=== PATIENT | female | born 1985 | race African-American/Black ===

== ENCOUNTER 2018-02-06 18:43 | Emergency (ER) | payer SELFPAY ==
[2018-02-06] MEDS ORDERED: Morphine INJ* 2 MG/ML 1 ML SYRINGE (TWO MG - NEW SYRINGE VERSION) IV ONE (22:31)
[2018-02-06] MEDS ORDERED: Metoclopramide IV* 5 MG/ML 2 ML VIAL IV SLOW PU ONE (22:32)
[2018-02-06] MEDS ORDERED: NS 0.9% 1000 ML* 1,000 ML IV ONE (22:32)
--- NOTE | 2018-02-06 22:40 | ED ---
Abdominal Pain/Female - HPI Summary HPI Summary: This is eva Rowe documenting for attending Neftali Magaña MD. This patient is a 32 year old F presenting to [facility] with a chief complaint of right sided ABD pain that began 11 days ago. The patient rates the pain 10/10 in severity and states it radiates into her back. Symptoms aggravated by coughing and sneezing. Patient denies n/v/d, decreased appetite, and fever. Pt waited this long to be seen because she needed to find someone to watch her son. - History of Current Complaint Chief Complaint: EDAbdPain Stated Complaint: RT FLANK/BACK PAIN Time Seen by Provider: 02/06/18 22:17 Hx Obtained From: Patient Onset/Duration: Lasting Days - 11, Still Present Timing: Constant Severity Initially: Severe Severity Currently: Severe Pain Intensity: 10 Pain Scale Used: 0-10 Numeric Location: Discrete At: RUQ, Discrete At: RLQ Radiates: Yes Radiates to: Back Aggravating Factor(s): Other: - cough and sneezing Associated Signs and Symptoms: Negative: Nausea, Vomiting, Diarrhea Allergies/Adverse Reactions: Allergies Allergy/AdvReac Type Severity Reaction Status Date / Time No Known Allergies Allergy Verified 02/06/18 18:51 PMH/Surg Hx/FS Hx/Imm Hx Endocrine/Hematology History: Denies: Hx Blood Transfusions, Hx Bone Marrow Disease, Hx Diabetes Cardiovascular History: Denies: Hx Auto Implanted Cardiovert Defib, Hx Cardiomegaly, Hx Congestive Heart Failure, Hx Deep Vein Thrombosis Respiratory History: Denies: Hx Chronic Obstructive Pulmonary Disease (COPD), Hx Lung Cancer GI History: Denies: Hx Gastroesophageal Reflux Disease, Hx Gastrointestinal Bleed History: Denies: Hx Acute Renal Failure Infectious Disease History: No Infectious Disease History: Denies: Traveled Outside the [place] in Last 30 Days - Family History Known Family History: Positive: Hypertension, Diabetes - Social History Lives: With Family Alcohol Use: Occasionally Substance Use Type: Reports: None Hx Tobacco Use: No Smoking Status (MU): Never Smoked Tobacco Review of Systems Constitutional: Other - decreased appetite Negative: Fever Positive: Abdominal Pain. Negative: Vomiting, Diarrhea, Nausea All Other Systems Reviewed And Are Negative: Yes Physical Exam - Summary Physical Exam Summary: VITAL SIGNS: Reviewed. GENERAL: Patient is a well-developed and nourished femalewho is lying comfortable in the stretcher. Patient is not in any acute respiratory distress. HEAD AND FACE: No signs of trauma. No ecchymosis, hematomas or skull depressions. No sinus tenderness. EYES: PERRLA, EOMI x 2, No injected conjunctiva, no nystagmus. EARS: Hearing grossly intact. Ear canals and tympanic membranes are within normal limits. MOUTH: Oropharynx within normal limits. NECK: Supple, trachea is midline, no adenopathy, no JVD, no carotid bruit, no c- spine tenderness, neck with full ROM. CHEST: Symmetric, no tenderness at palpation LUNGS: Clear to auscultation bilaterally. No wheezing or crackles. CVS: Regular rate and rhythm, S1 and S2 present, no murmurs or gallops appreciated. ABDOMEN: Soft, RUQ is TTP. No signs of distention. No rebound no guarding, and no masses palpated. Bowel sounds are normal. EXTREMITIES: FROM in all major joints, no edema, no cyanosis or clubbing. NEURO: Alert and oriented x 3. No acute neurological deficits. Speech is normal and follows commands. SKIN: Dry and warm Triage Information Reviewed: Yes Vital Signs On Initial Exam: Initial Vitals Temp Pulse Resp BP Pulse Ox 98.5 F 88 16 123/66 100 02/06/18 18:51 02/06/18 18:51 02/06/18 18:51 02/06/18 18:51 02/06/18 18:51 Vital Signs Reviewed: Yes Diagnostics - Vital Signs Vital Signs Temp Pulse Resp BP Pulse Ox 02/06/18 20:51 98.0 F 88 18 115/30 02/06/18 18:51 98.5 F 88 16 123/66 100 - Laboratory Result Diagrams: 02/06/18 22:59 02/06/18 22:58 Lab Statement: Any lab studies that have been ordered have been reviewed, and results considered in the medical decision making process. - CT CT ABD/Pelvis CT Interpretation Completed By: Radiologist - , No CT findings to correlate with patient's symptomatology. ED physician has reviewed this radiology report. - Ultrasound No standard instances Ultrasound Interpretation Completed By: Radiologist - US gallbladder reveals, per radiologist, no sonographic findings to correlate with the patients symptomatology ED physician has reviewed this radiology report. Re-Evaluation - Re-Evaluation Second Eval Re-Evaluation Time: 00:30 Change: Improved Comment: Pt is feeling better and is sleeping in the bed. Abdominal Pain Fem Course/Dx - Course Course Of Treatment: This patient is a 32 year old F presenting to [facility] with a chief complaint of right sided ABD pain that began 11 days ago. The patient rates the pain 10/10 in severity and states it radiates into her back. Symptoms aggravated by coughing and sneezing. Patient denies n/v/d, decreased appetite, and fever. Pt waited this long to be seen because she needed to find someone to watch her son. US gallbladder reveals, per radiologist, no sonographic findings to correlate with the patients symptomatology. CT ABD/Pelvis reveals , per radiology, No CT findings to correlate with patient's symptomatology. Test results with no significant abnormalities. UA was positive for UTI. In the ED course the patient was given reglan, morphine, bactrim, and IV fluids. She is feeling better after these medications. Patient will be discharged with prescription for bactrim and follow up from physician referral center. The patient is agreeable with this plan. - Diagnoses Provider Diagnoses: UTI (urinary tract infection) Discharge - Sign-Out/Discharge Documenting (check all that apply): Patient Departure - Discharge Plan Condition: Stable Disposition: HOME Prescriptions: Ibuprofen TAB* [Motrin TAB* 800 MG] 800 mg PO Q6H PRN #30 tab PRN Reason: Pain Sulfamethox/Trimethoprim DS* [Bactrim DS 800/160 TAB*] 1 tab PO BID #14 tab Patient Education Materials: Urinary Tract Infection in Women (DC) Referrals: [facility] PHYS[facility]IAN REFERRAL [Outside] - 2 Days Additional Instructions: RETURN TO THE EMERGENCY DEPARTMENT FOR CHANGING OR WORSENING SYMPTOMS Attestation Statement Scribe Attestation: This is eva Rowe documenting for attending Neftali Magaña MD User Type: Provider with Scribe Provider Attestation: The documentation recorded by the karoibcosta accurately reflects the service I personally performed and the decisions made by me.
[2018-02-06 23:18] LABS: Urine Appearance Cloudy; Urine Blood Negative (Negative); Urine Ketones Negative (Negative); Urine Protein Negative (Negative); Urine Red Blood Cell 3+(>10/hpf) (Absent); Urine Specific Gravity 1.029 (1.010-1.030); Urine Urobilinogen Negative (Negative); Urine White Blood Cell 3+(>20/hpf) (Absent)
[2018-02-06 23:21] LABS: ABS Basophils 0.1 10^3/ul (0-0.2); ABS Eosinophils 0.3 10^3/ul (0-0.6); ABS Lymphocytes 3.1 10^3/ul (1.0-4.8); ABS Monocytes 0.8 10^3/ul (0-0.8); ABS Neutrophils 3.3 10^3/ul (1.5-7.7); ABS Nucleated RBC 0 10^3/ul; Eosinophil % 4.2 % (0-6); Hematocrit 34 % (35-47); Hemoglobin 11.3 g/dl (12.0-16.0); Lymphocyte % 40.9 % (25-47); Mean Corpuscular HGB Conc 33 g/dl (31-36); Mean Corpuscular Hemoglobin 29 pg (27-31); Mean Corpuscular Volume 87 fL (80-97); Mean Platelet Volume 9.2 um3 (7.4-10.4); Nucleated Red Blood Cells % 0.2; Platelet Count 218 10^3/ul (150-450); Red Blood Count 3.94 10^6/ul (4.00-5.40); Red Cell Distribution Width 14 % (10.5-15); White Blood Count 7.6 10^3/ul (3.5-10.8)
[2018-02-06 23:21] LABS: INR 0.99 (0.77-1.02)
[2018-02-06 23:23] LABS: Urine Color Yellow
--- NOTE | 2018-02-06 23:27 | RAD ---
EXAM: US Abdomen Limited, Right Upper Quadrant CLINICAL HISTORY: 32 years old, female; Pain; Abdominal pain; Flank; Right upper quadrant (ruq); Additional info: Abd pain TECHNIQUE: Real-time ultrasound of the right upper quadrant with image documentation. COMPARISON: No relevant prior studies available. FINDINGS: Liver: Normal liver echogenicity and size with no focal lesions. Normal hepatopetal portal vein flow. No intrahepatic bile duct dilation. Gallbladder: Collapsed gallbladder which degrades evaluation. No gallstones, wall thickening, pericholecystic fluid, or sonographic Vegas's sign. Common bile duct: CBD measures 0.2 cm. Pancreas: Pancreatic head through proximal tail are well visualized showing no focal lesions or main ductal dilation. Distal tail is shadowed by overlying bowel gas. Right kidney: Right kidney measures 10.5 x 4.9 x 3.4 cm (92 cc). No solid cortical lesions, calculi, or pelvocaliectasis. Aorta: Non-atherosclerotic normal caliber aorta. Inferior vena cava: Patent IVC. IMPRESSION: No sonographic findings to correlate with patient's symptomatology. I have reviewed the above report as well as the images associated and agree with the findings.
[2018-02-06 23:31] LABS: EGFR Non-African American 65.9 (>60)
--- NOTE | 2018-02-07 00:25 | RAD ---
EXAM: CT Abdomen and Pelvis Without Intravenous Contrast CLINICAL HISTORY: 32 years old, female; Pain; Abdominal pain; Generalized; Additional info: Abd pain TECHNIQUE: Axial computed tomography images of the abdomen and pelvis without intravenous contrast. Coronal and sagittal reformatted images were created and reviewed. COMPARISON: GB US GALL BLADDER 2018-02-06 22:40 FINDINGS: Lung bases: Normal. No mass. No consolidation. ABDOMEN: Liver: Normal. Normal size. No masses. Gallbladder and bile ducts: Normal. No radiopaque calculi. No ductal dilation. Pancreas: Normal. No ductal dilation. Spleen: Normal. No splenomegaly. Adrenals: Normal. No mass. Kidneys and ureters: No renal solid cortical lesions, calculi, or pelvocaliectasis. Stomach and bowel: Incompletely distended grossly normal stomach. Normal caliber small bowel. No colonic masses or segmental wall thickening. PELVIS: Appendix: Normal caliber appendix without wall thickening or adjacent inflammation. Bladder: The bladder is decompressed but otherwise normal. No stones. Reproductive: Uterus and ovaries are normal. ABDOMEN and PELVIS: Intraperitoneal space: Normal. No pneumoperitoneum. No ascities. Bones/joints: No fractures. No suspicious bone lesions. Soft tissues: Normal. No hernias. Vasculature: Normal. No abdominal aortic aneurysm. Lymph nodes: Normal. No enlarged lymph nodes. IMPRESSION: No CT findings to correlate with patient's symptomatology. The study is limited as there is no oral or IV contrast present.
[2018-02-07] MEDS ORDERED: Sulfamethox/Trimethoprim DS 800/160* TAB PO ONE (00:36)
[2018-02-07 01:08] VITALS: BP 98/53
== END 2018-02-07 01:13 | disposition home or self-care (01) ==
LOC: ED 18:43
DX: N39.0 Urinary tract infection, site not specified (principal); R10.84 Generalized abdominal pain
CPT/HCPCS: 36415; 74176; 76705; 80053; 81003; 81015; 82150; 83690; 84702; 85025; 85610; 85730; 86140; 87086; 96374; 96375; 99283; A9270-GY; J2270; J2765

== ENCOUNTER 2018-05-02 21:54 | Inpatient (IN) | payer MEDICAID ==
[~2018-05-02 21:54] MED LIST: Haloperidol INJ IV/IM* 5 MG/ML AMP ONE; LORazepam INJ* 2 MG/ML 1 ML VIAL ONE
--- NOTE | 2018-05-02 22:28 | ED ---
Psychiatric Complaint - HPI Summary HPI Summary: This pt is a 32 y/o female presenting to [facility] via police crime scene technician on a 9.43. admitting officer reports the pt was sent by the administrative judge. Pt states she was in court because she had violated an order of protection by her significant other. Per nurse's note, she is "having issues with her over the custody on her child and had protective services involved." She reports SI thoughts. Pt notes she has not taken her medications "in a while." They include Depakote, Seroquel, PMHx of schizoaffective disorder. - History Of Current Complaint Chief Complaint: EDMentalHealth Time Seen by Provider: 05/02/18 22:16 Hx Obtained From: Patient Onset/Duration: Lasting Days, Still Present Timing: Days Severity Currently: Moderate Character: Depressed Aggravating Factor(s): Recent Stress - violating court order Alleviating Factor(s): Nothing Has Suicidal: Reports: Thoughts Recent Stressor(s): violating court order - Allergies/Home Medications Allergies/Adverse Reactions: Allergies Allergy/AdvReac Type Severity Reaction Status Date / Time No Known Allergies Allergy Verified 05/02/18 21:59 Home Medications: Home Medications NK [No Home Medications Reported] 05/02/18 [History Confirmed 05/02/18] PMH/Surg Hx/FS Hx/Imm Hx Endocrine/Hematology History: Denies: Hx Blood Transfusions, Hx Bone Marrow Disease, Hx Diabetes Cardiovascular History: Denies: Hx Auto Implanted Cardiovert Defib, Hx Cardiomegaly, Hx Congestive Heart Failure, Hx Deep Vein Thrombosis Respiratory History: Denies: Hx Chronic Obstructive Pulmonary Disease (COPD), Hx Lung Cancer GI History: Denies: Hx Gastroesophageal Reflux Disease, Hx Gastrointestinal Bleed History: Denies: Hx Acute Renal Failure Psychiatric History: Reports: Other Psychiatric Issues/Disorders - Schizoaffective disorder Infectious Disease History: No Infectious Disease History: Denies: Traveled Outside the US in Last 30 Days - Family History Known Family History: Positive: Hypertension, Diabetes - Social History Alcohol Use: Occasionally Substance Use Type: Reports: None Hx Tobacco Use: No Smoking Status (MU): Never Smoked Tobacco Review of Systems Negative: Fever, Chills Cardiovascular: Negative Respiratory: Negative Gastrointestinal: Negative Psychological: Other - POS: SI thoughts Positive: Depressed All Other Systems Reviewed And Are Negative: Yes Physical Exam - Summary Physical Exam Summary: VITAL SIGNS: Reviewed. GENERAL: Patient is a well-developed and nourished female who is lying comfortable in the stretcher. Patient is not in any acute respiratory distress. HEAD AND FACE: No signs of trauma. No ecchymosis, hematomas or skull depressions. No sinus tenderness. EYES: PERRLA, EOMI x 2, No injected conjunctiva, no nystagmus. EARS: Hearing grossly intact. Ear canals and tympanic membranes are within normal limits. MOUTH: Oropharynx within normal limits. NECK: Supple, trachea is midline, no adenopathy, no JVD, no carotid bruit, no c- spine tenderness, neck with full ROM. CHEST: Symmetric, no tenderness at palpation LUNGS: Clear to auscultation bilaterally. No wheezing or crackles. CVS: Regular rate and rhythm, S1 and S2 present, no murmurs or gallops appreciated. ABDOMEN: Soft, non-tender. No signs of distention. No rebound no guarding, and no masses palpated. Bowel sounds are normal. EXTREMITIES: FROM in all major joints, no edema, no cyanosis or clubbing. NEURO: Alert and oriented x 3. No acute neurological deficits. Speech is normal and follows commands. SKIN: Dry and warm Psych: tearful and suicidal. Triage Information Reviewed: Yes Vital Signs On Initial Exam: Initial Vitals Temp Pulse Resp BP Pulse Ox 97.7 F 72 16 134/85 99 05/02/18 21:56 05/02/18 21:56 05/02/18 21:56 05/02/18 21:56 05/02/18 21:56 Vital Signs Reviewed: Yes Diagnostics - Vital Signs Vital Signs Temp Pulse Resp BP Pulse Ox 05/02/18 21:56 97.7 F 72 16 134/85 99 - Laboratory Result Diagrams: 05/02/18 22:29 05/02/18 22:29 Lab Statement: Any lab studies that have been ordered have been reviewed, and results considered in the medical decision making process. Re-Evaluation - Re-Evaluation First Eval Re-Evaluation Time: 23:46 Comment: Pt is medically cleared. Course/Dx - Course Assessment/Plan: Pt is a 32 y/o female who presents to the ED via police crime scene technician on a 9.43. admitting officer reports the pt was sent by the administrative judge. Pt states she was in court because she had violated an order of protection by her significant other. Per nurse's note, she is "having issues with her over the custody on her child and had protective services involved." She reports SI thoughts. Pt was medically cleared at 23:46. Pt had a mental health evaluation and her case was reviewed by Dr. Ambrocio, psychiatrist. Dr. Ambrocio will involuntarily admit the pt to [facility] psychiatric facility. - Differential Dx/Clinical Impression Provider Diagnosis: Depression Discharge - Sign-Out/Discharge Documenting (check all that apply): Patient Departure - Admit to [facility] - Discharge Plan Condition: Stable Disposition: PSYCHIATRIC FACILITY[facility] Referrals: No Primary Care Phys,[facility]OP[facility] [Primary Care Provider] - - Attestation Statements Document Initiated by Scribe: Yes Documenting Scribe: Miriam Paula Provider For Whom Scribe is Documenting (Include Credential): Neftali Magaña MD Scribe Attestation: Miriam Brown, scribed for Neftali Magaña MD on 05/03/18 at 0059.
[2018-05-02 22:43] LABS: ABS Basophils 0.1 10^3/ul (0-0.2); ABS Eosinophils 0.2 10^3/ul (0-0.6); ABS Lymphocytes 3.3 10^3/ul (1.0-4.8); ABS Monocytes 0.6 10^3/ul (0-0.8); ABS Neutrophils 3.2 10^3/ul (1.5-7.7); ABS Nucleated RBC 0 10^3/ul; Eosinophil % 2.7 % (0-6); Hematocrit 37 % (35-47); Hemoglobin 12.1 g/dl (12.0-16.0); Mean Corpuscular HGB Conc 33 g/dl (31-36); Mean Corpuscular Hemoglobin 29 pg (27-31); Mean Corpuscular Volume 88 fL (80-97); Mean Platelet Volume 9.7 fL (7.4-10.4); Nucleated Red Blood Cells % 0.1; Platelet Count 205 10^3/ul (150-450); Red Blood Count 4.25 10^6/ul (4.00-5.40); Red Cell Distribution Width 14 % (10.5-15); White Blood Count 7.2 10^3/ul (3.5-10.8)
[2018-05-02 23:01] LABS: EGFR Non-African American 85.5 (>60)
[2018-05-02 23:21] LABS: Urine Appearance Cloudy; Urine Blood Negative (Negative); Urine Color Yellow; Urine Ketones Negative (Negative); Urine Protein Negative (Negative); Urine Specific Gravity 1.017 (1.010-1.030); Urine Urobilinogen Negative (Negative)
[2018-05-02] MEDS ORDERED: ALPRAZolam TAB* 0.5 MG ONE (23:40)
[2018-05-02] MEDS ORDERED: ALPRAZolam TAB* 0.5 MG PO ONE (23:42)
[2018-05-03] MEDS ORDERED: Mouth Piece, Nicotine* 1 EACH CARTRIDGE ONE (00:37)
[2018-05-03] MEDS ORDERED: Nicotine Inhaler* 10 MG AMP ONE (00:38)
[2018-05-03] MEDS: Nicotine Inhaler* 10 MG AMP INH PRN ×5 (00:40→19:18)
[2018-05-03] MEDS ORDERED: Al Hydrox/Mg Hydrox/Simet LIQ* 30 ML UDC PO PRN (07:14)
[2018-05-03] MEDS: Acetaminophen TAB* 325 MG PO PRN ×2 (09:37→16:30)
[2018-05-03] MEDS: Mouth Piece, Nicotine* 1 EACH CARTRIDGE INH SCH ×2 (09:38→16:29)
[2018-05-03] MEDS: Vitamin THERAPEUTIC TAB PO SCH (09:38)
[2018-05-03] MEDS: Nicotine GUM* 2 MG PO PRN ×3 (10:00→18:55)
[2018-05-03] MEDS: Nicotine PATCH 21 MG/24 HR* PATCH TRANSDERM SCH (10:07)
--- NOTE | 2018-05-03 13:29 | HP ---
H&P (Free Text) History and Physical: JUSTIFICATION FOR ADMISSION: Patient presented to emergency room after making suicidal and homicidal statements, with worsening irritability around custody issue with her son's father. She requires inpatient psychiatric admission in order to provide treatment and stabilization as she is a danger to himself and unpredictable with her behavior towards others. CHIEF COMPLAINT: "All I want is my child HISTORY OF THE PRESENT ILLNESS: Patient is a 32 y/o female, single, living with her friend, currently employed, with history of Bipolar disorder or ?schizoaffective Disorder. Patient has been non compliant with her medications since spring of this year after moving from [place] to [place]. Patient was admitted to inpatient unit for worsening of emotional regulation with behavioral dysregulation, frustrated with custody issues of her child, recent order of protection by son's father. Patient was overwhelmed with court proceeding as she was at the court for violating order of protection. Patient reports that she might lose her child and that has been very stressful recently. Patient reportedly was taking Depakote ER 1000 mg at bedtime and Seroquel 100 mg at Bedtime. Patient has been non compliant with her medication since move. Patient reportedly has been struggling with conflicts with son's father and has been consuming marijuana on a daily basis. Patient reports manic symptoms irritability, decrease sleep, increase energy, impulsive with easy distraction and hyperverbal and loud speech. Patient reports no psychotic symptoms of paranoia or delusion. Patient denied any suicidal or homicidal ideation on the unit. Patient continued to exhibit behavior that is in control and willing to participate in treatment. PAST PSYCHIATRIC HISTORY: Patient has history of atleast one inpatient psychiatric hospitalization in [place]. Patient has history of outpatient psychiatric treatment for her Bipolar Disorder in [place]. Patients medications in the past were Depakote, Seroquel and Zyprexa that she responded well to. Patient has history of making suicidal statement but reports no attempt or plan. Patient has history of homicidal threats but no intent or attempt. Patient has history of aggressive and agitated behavior when decompensates. No access to firearm reported. SUBSTANCE ABUSE HISTORY: Patient uses marjuana on a daily basis. Urine toxicology was positive for marijuana. Last use was on the day that she presented to [facility]. PAST MEDICAL HISTORY: No active medical problems ALLERGIES: NKA FAMILY PSYCHIATRIC HISTORY: Patient has reported family history of psychiatric illness or substance abuse in family. Patient reported that her cousin of suicide in the family. FAMILY/PSYCHOSOCIAL HISTORY: Patient currently lives with her friend at a rented house. Patient is currently employed. Patient is not . Patient has a 9 y/o child that she is very attached to and worry a lot about him. Patient was raised by her parents and grand parent in [place]. Patient still reports a good relationship with her parents. Patient reports that recently she lost her grandmother who was struggling with pancreatic cancer and in her apartment this year. Patient also reports that her cousin of suicide few years ago. Patient support system includes her family and friends. REVIEW OF SYSTEMS: Patients review of symptoms was negative for any physical complaint. Patient vitals were stable. Patients ED physical exam was reviewed which is grossly normal with no active medical problem. Physical Exam Summary: VITAL SIGNS: Reviewed. GENERAL: Patient is a well-developed and nourished female who is lying comfortable in the stretcher. Patient is not in any acute respiratory distress. HEAD AND FACE: No signs of trauma. No ecchymosis, hematomas or skull depressions. No sinus tenderness. EYES: PERRLA, EOMI x 2, No injected conjunctiva, no nystagmus. EARS: Hearing grossly intact. Ear canals and tympanic membranes are within normal limits. MOUTH: Oropharynx within normal limits. NECK: Supple, trachea is midline, no adenopathy, no JVD, no carotid bruit, no c- spine tenderness, neck with full ROM. CHEST: Symmetric, no tenderness at palpation LUNGS: Clear to auscultation bilaterally. No wheezing or crackles. CVS: Regular rate and rhythm, S1 and S2 present, no murmurs or gallops appreciated. ABDOMEN: Soft, non-tender. No signs of distention. No rebound no guarding, and no masses palpated. Bowel sounds are normal. EXTREMITIES: FROM in all major joints, no edema, no cyanosis or clubbing. NEURO: Alert and oriented x 3. No acute neurological deficits. Speech is normal and follows commands. SKIN: Dry and warm MENTAL STATUS EXAMINATION: Appearance: Patient is 32 y/o female, appear stated, age, sitting during the interview, appear tired, but fair grooming and hygiene. Behavior: in control Gait: normal Abnormal motor activity: normal Speech: normal tone and volume, normal rate and rhythm Mood: dysphoric Affect: depressed, constricted Thought process: coherent to circumstantial Thought Content: Suicidal/Homicidal ideation: passive SI due to custody issues Delusions: none Obsessions: none Phobia: none Perceptual disturbance: none Attention: fair Orientation: grossly intact Concentration: limited Memory: fair Insight: poor as per recent evidence Judgment: fair at this time and is showing compliance with treatment Impulse control: poor as per recent evidence IMPRESSION: Patient with history of Bipolar Disorder and Cannabis Abuse. Patient currently admitted due to making suicidal and homicidal statement, worsening of her mood swing and behavioral deregulation in in the context of custody issue of her 9 y/o son and court appearance due to violation of order of protection. Patient has also struggled with compliance since her move from [place] and has no outpatient services since then. Patient is a danger to self and others if discharged hence will be stabilized on inpatient unit with medication adjustments and therapy. DIAGNOSIS: Bipolar Disorder unspecified, Cannabis Abuse PLAN: Admit to U on Q 15 min observation. Patient is full code. Patient is on involuntary admission status Integrate patient into the milieu individual and group psychotherapy MMPI and psychological consult with Dr. Lamar. Social work consult for therapy and discharge planning Will hold family meeting with parents to increase Data base. Medications were verified from her [facility] pharmacy in [place], [place]. Patient gave informed consent to start the following medications: Patient was restarted on Depakote ER 1000 mg Po QHS for mood stability. Patient was also started on Seroquel 100 mg At Bedtime to help with insomnia and augment mood stabilization. Will continue to monitor and f/u for improvement and side effects. Cris Parra MD Attending Psychiatrist
[2018-05-03] MEDS: Divalproex ER TAB(*) 500 MG PO SCH (19:18)
[2018-05-03] MEDS: QUEtiapine TAB* 100 MG PO SCH (19:20)
[2018-05-04] MEDS: Vitamin THERAPEUTIC TAB PO SCH (08:27)
[2018-05-04] MEDS: Nicotine PATCH 21 MG/24 HR* PATCH TRANSDERM SCH (08:27)
[2018-05-04] MEDS: Nicotine GUM* 2 MG PO PRN ×4 (08:28→21:16)
[2018-05-04] MEDS: Nicotine Inhaler* 10 MG AMP INH PRN ×2 (08:29→21:16)
[2018-05-04] MEDS ORDERED: hydrOXYzine HCL TAB* 25 MG ONE (08:32)
[2018-05-04] MEDS: hydrOXYzine HCL TAB* 25 MG PO PRN ×2 (14:58→20:56)
[2018-05-04] MEDS: Divalproex ER TAB(*) 500 MG PO SCH (19:52)
[2018-05-04] MEDS: QUEtiapine TAB* 100 MG PO SCH (19:52)
[2018-05-05] MEDS: Nicotine GUM* 2 MG PO PRN ×5 (04:15→22:17)
[2018-05-05] MEDS: hydrOXYzine HCL TAB* 25 MG PO PRN ×4 (04:15→23:04)
[2018-05-05] MEDS: Nicotine Inhaler* 10 MG AMP INH PRN ×5 (05:20→17:41)
[2018-05-05] MEDS: Acetaminophen TAB* 325 MG PO PRN ×2 (07:26→11:48)
[2018-05-05] MEDS: Vitamin THERAPEUTIC TAB PO SCH (07:27)
[2018-05-05] MEDS: Nicotine PATCH 21 MG/24 HR* PATCH TRANSDERM SCH (11:00)
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
[2018-05-05] MEDS: QUEtiapine TAB* 100 MG PO SCH (20:50)
[2018-05-05] MEDS: Divalproex ER TAB(*) 500 MG PO SCH (20:50)
[2018-05-06] MEDS: Nicotine Inhaler* 10 MG AMP INH PRN ×2 (05:15→08:24)
[2018-05-06] MEDS: Nicotine PATCH 21 MG/24 HR* PATCH TRANSDERM SCH (08:00)
[2018-05-06] MEDS: hydrOXYzine HCL TAB* 25 MG PO PRN (08:01)
[2018-05-06] MEDS: Acetaminophen TAB* 325 MG PO PRN (08:01)
[2018-05-06] MEDS: Vitamin THERAPEUTIC TAB PO SCH (08:01)
[2018-05-06] MEDS: Nicotine GUM* 2 MG PO PRN (08:24)
[2018-05-06 10:24] VITALS: BP 114/83
--- NOTE | 2018-05-06 13:44 | DS ---
Subjective - Subjective Service Types: [id number] [facility] Day [facility] complex over 30 min Discharge Date: 05/06/18 Subjective: JUSTIFICATION FOR ADMISSION: Patient presented to emergency room after making suicidal and homicidal statements, with worsening irritability around custody issue with her son's father. She requires inpatient psychiatric admission in order to provide treatment and stabilization as she is a danger to himself and unpredictable with her behavior towards others. CHIEF COMPLAINT: "All I want is my child HISTORY OF THE PRESENT ILLNESS: Patient is a 32 y/o female, single, living with her friend, currently employed, with history of Bipolar disorder or ?schizoaffective Disorder. Patient has been non compliant with her medications since spring of this year after moving from [place] to [place]. Patient was admitted to inpatient unit for worsening of emotional regulation with behavioral dysregulation, frustrated with custody issues of her child, recent order of protection by son's father. Patient was overwhelmed with court proceeding as she was at the court for violating order of protection. Patient reports that she might lose her child and that has been very stressful recently. Patient reportedly was taking Depakote ER 1000 mg at bedtime and Seroquel 100 mg at Bedtime. Patient has been non compliant with her medication since move. Patient reportedly has been struggling with conflicts with son's father and has been consuming marijuana on a daily basis. Patient reports manic symptoms irritability, decrease sleep, increase energy, impulsive with easy distraction and hyperverbal and loud speech. Patient reports no psychotic symptoms of paranoia or delusion. Patient denied any suicidal or homicidal ideation on the unit. Patient continued to exhibit behavior that is in control and willing to participate in treatment. PAST PSYCHIATRIC HISTORY: Patient has history of atleast one inpatient psychiatric hospitalization in [place]. Patient has history of outpatient psychiatric treatment for her Bipolar Disorder in [place]. Patients medications in the past were Depakote, Seroquel and Zyprexa that she responded well to. Patient has history of making suicidal statement but reports no attempt or plan. Patient has history of homicidal threats but no intent or attempt. Patient has history of aggressive and agitated behavior when decompensates. No access to firearm reported. SUBSTANCE ABUSE HISTORY: Patient uses marjuana on a daily basis. Urine toxicology was positive for marijuana. Last use was on the day that she presented to [facility]. PAST MEDICAL HISTORY: No active medical problems ALLERGIES: NKA FAMILY PSYCHIATRIC HISTORY: Patient has reported family history of psychiatric illness or substance abuse in family. Patient reported that her cousin of suicide in the family. FAMILY/PSYCHOSOCIAL HISTORY: Patient currently lives with her friend at a rented house. Patient is currently employed. Patient is not . Patient has a 9 y/o child that she is very attached to and worry a lot about him. Patient was raised by her parents and grand parent in [place]. Patient still reports a good relationship with her parents. Patient reports that recently she lost her grandmother who was struggling with pancreatic cancer and in her apartment this year. Patient also reports that her cousin of suicide few years ago. Patient support system includes her family and friends. REVIEW OF SYSTEMS: Patients review of symptoms was negative for any physical complaint. Patient vitals were stable. Patients ED physical exam was reviewed which is grossly normal with no active medical problem. Physical Exam Summary: VITAL SIGNS: Reviewed. GENERAL: Patient is a well-developed and nourished female who is lying comfortable in the stretcher. Patient is not in any acute respiratory distress. HEAD AND FACE: No signs of trauma. No ecchymosis, hematomas or skull depressions. No sinus tenderness. EYES: PERRLA, EOMI x 2, No injected conjunctiva, no nystagmus. EARS: Hearing grossly intact. Ear canals and tympanic membranes are within normal limits. MOUTH: Oropharynx within normal limits. NECK: Supple, trachea is midline, no adenopathy, no JVD, no carotid bruit, no c- spine tenderness, neck with full ROM. CHEST: Symmetric, no tenderness at palpation LUNGS: Clear to auscultation bilaterally. No wheezing or crackles. CVS: Regular rate and rhythm, S1 and S2 present, no murmurs or gallops appreciated. ABDOMEN: Soft, non-tender. No signs of distention. No rebound no guarding, and no masses palpated. Bowel sounds are normal. EXTREMITIES: FROM in all major joints, no edema, no cyanosis or clubbing. NEURO: Alert and oriented x 3. No acute neurological deficits. Speech is normal and follows commands. SKIN: Dry and warm MENTAL STATUS EXAMINATION On ADMISSION: Appearance: Patient is 32 y/o female, appear stated, age, sitting during the interview, appear tired, but fair grooming and hygiene. Behavior: in control Gait: normal Abnormal motor activity: normal Speech: normal tone and volume, normal rate and rhythm Mood: dysphoric Affect: depressed, constricted Thought process: coherent to circumstantial Thought Content: Suicidal/Homicidal ideation: passive SI due to custody issues Delusions: none Obsessions: none Phobia: none Perceptual disturbance: none Attention: fair Orientation: grossly intact Concentration: limited Memory: fair Insight: poor as per recent evidence Judgment: fair at this time and is showing compliance with treatment Impulse control: poor as per recent evidence DIAGNOSIS ON ADMISSION: Bipolar Disorder unspecified, Cannabis Abuse DIAGNOSIS ON DISCHARGE: Bipolar Disorder unspecified, Cannabis Abuse Objective - Appearance Appearance: Healthy Appearing Dysmorphic Features: No Hygiene: Normal Grooming: Fairly Well Kept - Behavior Psychomotor Activities: Normal Exhibits Abnormal Movement: No - Attitude and Relatedness Attitude and Relatedness: Cooperative Eye Contact: Fair - Speech Quality: Unpressured Latencies: Normal Quantity: Appropriate - Mood Patient's Decription of Mood: "Fine" - Affect Observed Affect: Fair Affect Consistent with: Euthymia - Thought Process Patient's Thought Process: Coherent Thought Content: No Passive Wish, No Suicidal Planning, No Homicidal Ideation, No Paranoid Ideation - Sensorium Experiencing Hallucinations: No, Sensorium is Clear Type of Hallucinations: Visual: No, Auditory: No, Command: No - Level of Consciousness Level of Consciousness: Alert Orientation: Yes Intact, Yes Orientated to Time, Yes Orientated to Place, Yes Orientated to Person - Impulse Control Impulse Control: Intact - Insight and Judgement Insight and Judgement: Fair - Group Participation Particating in Group Activities: Yes - Medication Management Medication Management Adherence: Yes Treatment Course & Assessment Clinical Course & Impression: Patient is 32 y/o female with history of Bipolar Disorder and Cannabis Abuse. Patient currently admitted due to making suicidal and homicidal statement, worsening of her mood swing and behavioral deregulation in in the context of custody issue of her 9 y/o son and court appearance due to violation of order of protection. Patient has also struggled with compliance since her move from [place] and has no outpatient services since then. Patient was a danger to self and others if discharged hence will be stabilized on inpatient unit with medication adjustments and therapy. Patient was admitted to [facility] on Q 15 min observation. Patient is full code. Patient was on involuntary admission status. Integrated patient into the milieu individual and group psychotherapy. Social work consulted for therapy and discharge planning. Medications were verified from her [facility] pharmacy in [place], [place]. Patient gave informed consent to start Depakote ER 1000 mg PO QHS for mood stability. Patient was also started on Seroquel 100 mg At Bedtime to help with insomnia and augment mood stabilization. Patient was monitored and followed up for improvement and side effects. Patient was compliant with treatment, was sleeping and eating good. Patient tolerated medication well with no side effects reported. Patient responded quickly and showed good improvement. Patient mood and behavior was stable. Patient was safe on all checks. Patient denied suicidal or homicidal ideation. Patient was not psychotic or manic on the day of discharge. patient was counseled about substance abuse and was willing to follow up outpatient for that as well. Patient was requesting for discharge and did not meet criteria fro involuntary hospitalization. As patient was doing good, patietn was discharged with plan to follow up with outpatient treatment after discussing with team. Merits Inpatient Hospitalization: No Clear for Discharge: Adequate Clinical Respons, Acceptable Safety Profile, Low Utility of Inpt Care Inpatient DSM-V Dx: F39 Discharge Planning - Discharge Planning Discharge Plan: Outpatient Follow Up Recommendations for Continuing Care: Medication Management, Psychotherapy, Substance Abuse Counseling Medications: Discharge Medications: Depakote ER PO 1000 mg HS Seroquel 100 mg PO QHS Hydroxyzine 50 mg PO BID PRN for anxiety provided 2 weeks of medications Discharge Planning: Prescriptions provided for discharge [x] Yes [] No Follow up care details as per social work arrangements. Patient response to discharge plan: [x] eager for discharge [] agreeable with discharge plan [] ambivalent about discharge [] disagrees with discharge today
== END 2018-05-06 12:52 | disposition home or self-care (01) | DRG 753 ==
LOC: ED 21:54 → BSU 05-03 00:50
PROVIDERS: ADMIT Psychiatry & Neurology Psychiatry; ATTEND Psychiatry & Neurology Psychiatry
DX: F39 Unspecified mood [affective] disorder (principal); R45.851 Suicidal ideations; F31.9 Bipolar disorder, unspecified; F12.10 Cannabis abuse, uncomplicated; R45.850 Homicidal ideations; Z91.14 Patient's other noncompliance with medication regimen; Z81.8 Family history of other mental and behavioral disorders
CPT/HCPCS: 36415; 80053; 80307; 80320; 80329; 81003; 84443; 84702; 85025; 99222; 99231; 99238; 99284; A9270-GY; G0480; J1630; J2060

== ENCOUNTER 2018-09-12 23:51 | Emergency (ER) | payer OTHER ==
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
[2018-09-13] MEDS ORDERED: Ketorolac INJ* 30 MG/ML 1 ML VIAL IM ONE (01:38)
[2018-09-13] MEDS ORDERED: Diazepam TAB(*) 5 MG PO ONE (01:38)
[2018-09-13 03:09] VITALS: BP 96/58
== END 2018-09-13 03:07 | disposition home or self-care (01) ==
LOC: ED 23:51
DX: M54.5 Low back pain (principal); F17.210 Nicotine dependence, cigarettes, uncomplicated; R11.2 Nausea with vomiting, unspecified; R19.7 Diarrhea, unspecified; R10.9 Unspecified abdominal pain; M41.9 Scoliosis, unspecified; M43.06 Spondylolysis, lumbar region
CPT/HCPCS: 72070; 72110; 96372; 99282; A9270-GY; J1885

== ENCOUNTER 2019-03-25 10:19 | Emergency (ER) | payer SELFPAY ==
--- NOTE | 2019-03-25 10:56 | ED ---
Abdominal Pain/Female - HPI Summary HPI Summary: Patient is a 33 y/o F presenting to the ED for a chief complaint of abdominal pain that began on 03/22/19. On 03/23/19, she hoped she would feel better with rest, but in the evening the abdominal pain worsened. On 03/25/19, she was unable to walk due to the pain. The abdominal pain is worse with palpation and movement, and feels like pressure and discomfort. The abdominal pain improves when at rest. Patient also admits discoloration in vaginal discharge with a paste-like texture and foul odor. Patient denies dysuria, hematuria, vaginal pain, vaginal bleeding, or rectal pain. LNMP was 03/08/19 and was at baseline. In 2010, the patient had a miscarriage at 3 months; she has been twice and has 1 child. [id number]. With her first son, an ultrasound revealed ovarian cysts. She does not believe she is . Patient denies taking contraceptives or laxatives. She has not taken a test at home. She has had the same partner for 13 years. Patient denies a PMHx of chlamydia or gonorrhea. She did not have dyspareunia and did not have discharge except once after intercourse that resolved after she showered. She previously went to [facility] and was told she had abnormal vaginal discharge and was given a course of medication for an STI. Patient has PAP smears completed in June yearly. Patient does not have a primary care physician or [facility] physician. She has had hemorrhoids since having her son and has difficulty with bowel movements. Her last bowel movement was on 03/24/19 and described as loose, without blood in the stool and was light in color. Patient reports bowel movements are typically daily and she has previously had blood in the stool. Patient takes divalproex 500 Mg for mood and quetiapine fumerate 100 mg. Patient has a FMHx of ovarian cancer in her grandmother. Patient denies previous surgical Hx. Patient has a PMHx of scoliosis and a back injury for which she has received cortisone injections. 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 Patient is from [place], [place]. - History of Current Complaint Chief Complaint: EDAbdPain Stated Complaint: ABD PAIN X4 DAYS PER PT Time Seen by Provider: 03/25/19 10:45 Hx Obtained From: Patient Hx Last Menstrual Period: 03/08/19 ?: No Onset/Duration: Sudden Onset, Lasting Days, Still Present Timing: Constant Severity Initially: Severe Severity Currently: Severe Pain Intensity: 9 Pain Scale Used: 0-10 Numeric Location: Diffuse Radiates: No Character: Other: - Pressure and discomfort Aggravating Factor(s): Movement, Other: - Palpation Alleviating Factor(s): Nothing Associated Signs and Symptoms: Positive: Blood in Stool - Not at present time, Vaginal Discharge, Other: - Negative N,V,D, dyspareunia, rectal pain or vaginal pain. Negative: Urinary Symptoms - Negative dysuria, Vaginal Bleeding Allergies/Adverse Reactions: Allergies Allergy/AdvReac Type Severity Reaction Status Date / Time No Known Allergies Allergy Verified 09/20/18 13:40 Home Medications: Home Medications tiZANidine TAB* [Zanaflex TAB*] 2 mg PO BID 03/25/19 [History Confirmed 03/25/19 ] PMH/Surg Hx/FS Hx/Imm Hx Previously Healthy: Yes Endocrine/Hematology History: Denies: Hx Blood Transfusions, Hx Bone Marrow Disease, Hx Diabetes Cardiovascular History: Denies: Hx Auto Implanted Cardiovert Defib, Hx Cardiomegaly, Hx Congestive Heart Failure, Hx Deep Vein Thrombosis Respiratory History: Denies: Hx Chronic Obstructive Pulmonary Disease (COPD), Hx Lung Cancer GI History: Reports: Other GI Disorders - hemorrhoids Denies: Hx Gastroesophageal Reflux Disease, Hx Gastrointestinal Bleed History: Reports: Other Problems/Disorders - Ovarian cyst Denies: Hx Acute Renal Failure Musculoskeletal History: Reports: Hx Back Problems - back injury, Hx Scoliosis Sensory History: Denies: Hx Contacts or Glasses, Hx Hearing Aid Opthamlomology History: Denies: Hx Contacts or Glasses Psychiatric History: Reports: Other Psychiatric Issues/Disorders - Schizoaffective disorder - Surgical History Surgical History: None Surgery Procedure, Year, and Place: None Hx Anesthesia Reactions: No Infectious Disease History: No Infectious Disease History: Denies: Traveled Outside the [place] in Last 30 Days - Family History Known Family History: Positive: Hypertension, Diabetes, Other - Ovarian cancer - Social History Occupation: Employed Full-time Lives: With Family Alcohol Use: None Hx Substance Use: Yes Substance Use Type: Reports: Marijuana Hx Tobacco Use: Yes Smoking Status (MU): Light Every Day Tobacco Smoker Type: Cigarettes Review of Systems Constitutional: Negative Cardiovascular: Negative Respiratory: Negative Positive: Abdominal Pain, Other - negative rectal pain; positive hemorrhoids and blood in stool in the past Genitourinary: Other - negative - vaginal bleeding Positive: discharge - vaginal described as paste-like with foul odor, other - Negative dyspareunia. Negative: dysuria, hematuria, pain - vaginal Musculoskeletal: Negative Skin: Negative Neurological: Negative Psychological: Normal All Other Systems Reviewed And Are Negative: Yes Physical Exam - Summary Physical Exam Summary: Appearance: Ill-appearing, moderate pain distress, well-nourished Skin: Warm, color reflects adequate perfusion, dry Head: Normal Head/Face inspection, atraumatic Eyes: Conjunctiva clear ENT: Normal inspection Neck: Supple, no nodes, no JVD Respiratory: Lungs clear, normal breath sounds, no respiratory distress Cardio: RRR, No murmur, pulses normal, brisk capillary refill Abdomen: Soft, LLQ tenderness. Positive guarding, no rebound, no masses, non- distended, no CVAT Bowel sounds: Present Musculoskeletal: Strength Intact/ROM intact, no calf tenderness, no edema. Psychological: Normal Neuro: Alert, muscle tone normal, no focal deficit Triage Information Reviewed: Yes Vital Signs On Initial Exam: Initial Vitals Temp Pulse Resp BP Pulse Ox 97.7 F 70 18 106/79 100 03/25/19 10:21 03/25/19 10:21 03/25/19 10:21 03/25/19 10:21 03/25/19 10:21 Vital Signs Reviewed: Yes Procedures - Sedation Patient Received Moderate/Deep Sedation with Procedure: No Diagnostics - Vital Signs Vital Signs Temp Pulse Resp BP Pulse Ox 03/25/19 10:21 97.7 F 70 18 106/79 100 - Laboratory Result Diagrams: 03/25/19 11:13 03/25/19 11:13 Lab Statement: Any lab studies that have been ordered have been reviewed, and results considered in the medical decision making process. - CT Abdomen/Pelvis CT CT Interpretation Completed By: Radiologist Summary of CT Findings: Abdomen/Pelvis CT IMPRESSION: 1. NO CLEAR ETIOLOGY FOR THE PATIENT'S SYMPTOMS; SPECIFICALLY, NO EVIDENCE OF. NEPHROLITHIASIS OR HYDROURETERONEPHROSIS. 2. TRACE FREE FLUID IN THE PELVIS. THE UTERUS AND ADNEXA ARE GROSSLY UNREMARKABLE BY CT. BUT BETTER EVALUATED BY SAME DAY ULTRASOUND. Reviewed by ED physician. - Ultrasound Transvaginal US Ultrasound Interpretation Completed By: Radiologist Summary of Ultrasound Findings: Transvaginal US IMPRESSION: 1. THERE IS A SMALL AMOUNT OF SIMPLE FLUID WITHIN THE CUL-DE-SAC. THIS MAY BE PHYSIOLOGIC. IN A REPRODUCTIVE AGE FEMALE. 2. NO SONOGRAPHIC FEATURES OF TORSION. PLEASE NOTE THAT PARTIAL OR INTERMITTENT TORSION. MAY BE SONOGRAPHICALLY NORMAL. Reviewed by ED physician. Re-Evaluation - Re-Evaluation Second Eval Re-Evaluation Time: 12:55 Change: Worse Comment: Pt still with 10/10 pain. Nurse has been with critical pt. Pt to receive pain meds now. US not diagnostic for LLQ pain. Hematuria on UA. Will check CT abd/pelvis, kidney stone protocol. First Eval Re-Evaluation Time: 11:15 Change: Unchanged Comment: Pt rates her abd pain 10/10. Will give ketorolac 30mg IV and NS IV. Third Eval Re-Evaluation Time: 15:20 Change: Improved Comment: Pt's pain has improved but still 4-5/10. No N,V,D. No vag bleeding. Will give percocet 5/325mg po x 2 to help with pt's pain now. 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 Abdominal Pain Fem Course/Dx - Course Course Of Treatment: Patient is a 33 y/o F presenting to the ED for a chief complaint of abdominal pain that began on 03/22/19. Patient also admits discoloration in vaginal discharge with a paste-like texture and foul odor. Patient denies dysuria, hematuria, vaginal pain, vaginal bleeding, or rectal pain. Patient takes divalproex 500 Mg for mood and quetiapine fumerate 100 mg. She notes PMHx of ovarian cysts and FMHx of ovarian cancer. Laboratory all normal with minor abnormal findings: APTT 38.5, Creatinine 1.01,(GFR 77) urine ketones trace, urine leukocyte esterase 1+, urine WBC 2+, urine RBC 2+, and squamous epith cells present. No bacteria and nitrates neg. Quantitative serum HCG is neg. Transvaginal US IMPRESSION: 1. THERE IS A SMALL AMOUNT OF SIMPLE FLUID WITHIN THE CUL-DE-SAC. THIS MAY BE PHYSIOLOGIC. IN A REPRODUCTIVE AGE FEMALE. 2. NO SONOGRAPHIC FEATURES OF TORSION. PLEASE NOTE THAT PARTIAL OR INTERMITTENT TORSION. MAY BE SONOGRAPHICALLY NORMAL. Reviewed by ED . Abdomen/Pelvis CT IMPRESSION: 1. NO CLEAR ETIOLOGY FOR THE PATIENT'S SYMPTOMS ; SPECIFICALLY, NO EVIDENCE OF. NEPHROLITHIASIS OR HYDROURETERONEPHROSIS. 2. TRACE FREE FLUID IN THE PELVIS. THE UTERUS AND ADNEXA ARE GROSSLY UNREMARKABLE BY CT. BUT BETTER EVALUATED BY SAME DAY ULTRASOUND. Reviewed by ED MD. 2nd re- eval: At 11:15, pt rates her abd pain 10/10. Will give ketorolac 30mg IV, and NS IV. 3rd re-eval: At 12:55, Pt still with 10/10 pain. Nurse has been with critical pt. Pt to receive pain meds now. US not diagnostic for LLQ pain. Hematuria on UA. Will check CT abd/pelvis, kidney stone protocol. In the ED course, pt was given ketorolac 30mg IV, Percocet 5/325 tab x2, and NS IV. Pt will be discharged home with a diagnosis of Mittelschmerz, LLQ abd pain.. - Diagnoses Differential Diagnosis: Positive: Constipation, Diverticulitis, Ectopic , Irritable Bowel Syndrome, Ovarian Cyst, Pelvic Inflammatory Disease, Renal Colic, Urinary Tract Infection Provider Diagnoses: Mittelschmerz, LLQ abdominal pain Discharge ED - Sign-Out/Discharge Documenting (check all that apply): Patient Departure - Discharge - Discharge Plan Condition: Stable Disposition: HOME Prescriptions: Ibuprofen TAB* [Motrin TAB* 600 MG] 600 mg PO Q8H PRN #20 tab PRN Reason: Pain - Mild Patient Education Materials: Mittelschmerz (ED), Acute Abdominal Pain (ED), Pelvic Pain in Women (ED) Forms: *Work Release Referrals: [facility] [Outside] - As Soon As Possible Tawanda Loaiza MD [Medical Doctor] - (call for an appointment to get established as a patient ) Additional Instructions: We did both an ultrasound and a CT abdomen and pelvis on you today and neither tests showed any abnormality to explain her discomfort today. It is possible because you are in the middle of your menstrual cycle, that you are having mittelschmerz, meaning pain with ovulation. We gave you ketorolac 30 mg in your IV for pain, and we gave you 2 L of normal saline for hydration, and we gave you 2 5/325 Percocet for pain. We recommend that you continue to take acetaminophen and/or ibuprofen for pain, and that you "stay ahead of the pain", by taking the pain medication regularly, instead of waiting until the pain becomes very severe to take medication. We also recommend that you try a heating pad over the area of pain. We recommend that you rest and drink lots of fluids and try to continue activities as usual. We have recommended that you not return to work until this Sunday, March 28, and we've given you in note to excuse her from work for the days you have already missed as well as until Sunday. Please return to the emergency room if you have fever, bleeding, pain way you doubled over nausea or vomiting or any new or worsening symptoms. - Billing Disposition and Condition Condition: STABLE Disposition: Home - Attestation Statements Document Initiated by Merrick: Yes Documenting Scribe: Yamilet Garza Provider For Whom Merrick is Documenting (Include Credential): Santa Mendoza MD. Scribe Attestation: Yamilet Brown, scribed for Santa Mendoza MD. on 04/20/19 at 1409. Scribe Documentation Reviewed: Yes Provider Attestation: The documentation as recorded by the scribe, Yamilet Garza accurately reflects the service I personally performed and the decisions made by , Santa Mendoza MD. Status of Scribe Document: Viewed
[2019-03-25 11:25] LABS: ABS Eosinophils 0.1 10^3/ul (0-0.6); ABS Lymphocytes 2.2 10^3/ul (1.0-4.8); ABS Monocytes 0.6 10^3/ul (0-0.8); ABS Neutrophils 2.3 10^3/ul (1.5-7.7); Eosinophil % 1.6 %; Hematocrit 40 % (35-47); Hemoglobin 13.1 g/dL (12.0-16.0); Lymphocyte % 42.8 %; Mean Corpuscular HGB Conc 33 g/dL (31-36); Mean Corpuscular Hemoglobin 30 pg (27-31); Mean Corpuscular Volume 91 fL (80-97); Mean Platelet Volume 9.1 fL (7.4-10.4); Nucleated Red Blood Cells % 0.2; Platelet Count 155 10^3/uL (150-450); Red Blood Count 4.38 10^6 /uL (3.70-4.87); Red Cell Distribution Width 14 % (10-15); White Blood Count 5.2 10^3/uL (3.5-10.8)
[2019-03-25] MEDS ORDERED: Ketorolac INJ* 30 MG/ML 1 ML VIAL IV ONE (11:33)
[2019-03-25 11:45] LABS: ALT 9 U/L (7-52); AST 14 U/L (13-39); Albumin 4.2 g/dL (3.2-5.2); Albumin/Globulin Ratio 1.6 (1-3); Alkaline Phosphatase 46 U/L (34-104); Amylase 50 U/L (29-103); Anion Gap 6 mmol/L (2-11); BUN/Creatinine Ratio 14.9 (8-20); Blood Urea Nitrogen 15 mg/dL (6-24); C Reactive Protein < 1.00 mg/L (<8.01); CO2 Carbon Dioxide 26 mmol/L (22-32); Calcium 8.9 mg/dL (8.6-10.3); Chloride 105 mmol/L (101-111); EGFR African American 77.4 (>60); EGFR Non-African American 63.9 (>60); Globulin 2.7 g/dL (2-4); Glucose 84 mg/dL (70-100); Potassium 4.2 mmol/L (3.5-5.0); Sodium 137 mmol/L (135-145); Total Protein 6.9 g/dL (6.4-8.9)
[2019-03-25] MEDS ORDERED: NS 0.9% 1000 ML** 1,000 ML IV.FLUID IV ONE (11:45)
[2019-03-25 11:50] LABS: HCG Pregnancy < 0.60 mIU/mL
[2019-03-25 12:00] LABS: Urine Appearance Cloudy; Urine Bacteria Absent (Absent); Urine Bilirubin Negative (Negative); Urine Blood Negative (Negative); Urine Color Yellow; Urine Glucose Negative (Negative); Urine Ketones Trace (Negative); Urine Nitrite Negative (Negative); Urine Protein Negative (Negative); Urine Red Blood Cell 2+(6-10/hpf) (Absent); Urine Specific Gravity 1.025 (1.010-1.030); Urine Squamous Epithelial Cell Present (Absent); Urine Urobilinogen Negative (Negative); Urine White Blood Cell 2+(11-20/hpf) (Absent)
[2019-03-25 13:25] LABS: HIV 4th Generation Nonreactive (Nonreactive)
[2019-03-25] MEDS ORDERED: oxyCODONE/Acetamin 5/325 MG* TAB PO ONE (15:27)
[2019-03-25 15:38] VITALS: BP 124/90
== END 2019-03-25 15:37 | disposition home or self-care (01) ==
LOC: ED 10:19
DX: N94.0 Mittelschmerz (principal); N89.8 Other specified noninflammatory disorders of vagina; F17.210 Nicotine dependence, cigarettes, uncomplicated
CPT/HCPCS: 36415; 74176; 76830; 80053; 81003; 81015; 82150; 83605; 83690; 84702; 85025; 85730; 86140; 87086; 87389; 96361; 96374; 99282; A9270-GY; J1885

== ENCOUNTER 2019-05-05 14:31 | Emergency (ER) | payer SELFPAY ==
--- NOTE | 2019-05-05 14:36 | UC ---
Dental HPI - HPI Summary HPI Summary: Patient is a 33yo female presenting with R and L lower tooth pain x1 week. Patient states the R lower tooth chipped and has since gotten more painful and moved into her jaw. Notes neck swelling beneath R jaw. Notes bloody drainage from L lower tooth, which has been broken for a while. Notes chills since yesterday but denies fever. Denies nausea and vomiting. Denies pus draining. States eating as become difficult d/t pain. Has been taking tylenol without relief. Denies having dentist, as she just moved here from [place]. - History of Current Complaint Stated Complaint: DENTAL PAIN Hx Obtained From: Patient Hx Last Menstrual Period: 03/08/19 Onset/Duration: Gradual Onset, Lasting Days Severity: Moderate - Allergies/Home Medications Allergies/Adverse Reactions: Allergies Allergy/AdvReac Type Severity Reaction Status Date / Time No Known Allergies Allergy Verified 05/05/19 14:40 PMH/Surg Hx/FS Hx/Imm Hx - Surgical History Surgical History: None Surgery Procedure, Year, and Place: None - Family History Known Family History: Positive: Hypertension, Diabetes, Other - Ovarian cancer - Social History Occupation: Student Alcohol Use: None Substance Use Type: Marijuana Substance Use Comment - Amount & Last Used: 2 x weekly Smoking Status (MU): Light Every Day Tobacco Smoker Type: Cigarettes Household Exposure Type: Cigarettes - Immunization History Most Recent Influenza Vaccination: 05/06/18 Most Recent Pneumonia Vaccination: never Review of Systems All Other Systems Reviewed And Are Negative: Yes Constitutional: Positive: Chills. Negative: Fever Skin: Positive: Negative ENT: Positive: Dental Pain - R and L lower tooth, Ear Ache - R ear, Other - R neck swelling. Negative: Sore Throat Respiratory: Positive: Negative Cardiovascular: Positive: Negative Gastrointestinal: Positive: Negative. Negative: Vomiting, Nausea Neurological: Positive: Negative Physical Exam Triage Information Reviewed: Yes Appearance: Well-Appearing, No Pain Distress, Well-Nourished Vital Signs: Vital Signs (72 hours) 05/05/19 14:36 Temperature 97.5 F Pulse Rate 100 Respiratory 16 Rate Blood Pressure 114/70 (mmHg) O2 Sat by Pulse 100 Oximetry Vital Signs Reviewed: Yes Eyes: Positive: Conjunctiva Clear ENT: Positive: Hearing grossly normal, Pharynx normal, TMs normal, Dental tenderness, Uvula midline. Negative: Trismus Dental: Positive: Gross Decay/Caries @ - #20, Dental Fracture @ - #30, Cellulitis @ - R lower gingiva, Cervical Lymphadenopathy - R submandibular node. Negative: Abscess @, Bleeding Neck: Positive: Supple, Tenderness @ - R submandibular node, Enlarged Nodes @ - R submandibular node Respiratory Exam: Normal Respiratory: Positive: Lungs clear, Normal breath sounds, No respiratory distress Cardiovascular Exam: Normal Cardiovascular: Positive: RRR Neurological: Positive: Alert Psychological: Positive: Age Appropriate Behavior Dental Complaint Course/Dx - Course Course Of Treatment: I treated with clindamycin for dental infection. Instructed patient to continue with salt water gargles and otc analgesics for pain relief. Instructed to follow up with dentist as soon as possible for further eval. She received list of local dentists here to choose from. Patient voiced understanding and agreed with the treatment plan. - Differential Dx/Diagnosis Provider Diagnosis: Fractured tooth, Infected dental caries Discharge ED - Sign-Out/Discharge Documenting (check all that apply): Patient Departure All imaging exams completed and their final reports reviewed: No Studies - Discharge Plan Condition: Stable Disposition: HOME Prescriptions: Clindamycin Cap(NF) [Clindamycin Cap 300 mg Cap(NF)] 300 mg PO TID #21 cap Patient Education Materials: Clindamycin (By mouth), Toothache (ED) Referrals: [facility] [Outside] - If Needed [facility] [Outside] - If Needed Additional Instructions: As discussed, take Clindamycin as prescribed for your dental infection. Be sure to finish the full course of the antibiotic. It is recommended that you eat icelandic yogurt or take a probiotic found over the counter to avoid infectious diarrhea called C. diff that can be caused by use of clindamycin. You may use warm salt water gargles and warm compresses to your cheeks 2-3 times daily. You may use ibuprofen and tylenol as directed for pain and fever relief. It is important that you follow up with a dentist as soon as possible for further evaluation and treatment. Go to the emergency room if you experience fever greater than 102, severe pain, redness and swelling of your mouth or jaw, inability to swallow or move your jaw , nausea, or vomiting. - Billing Disposition and Condition Condition: STABLE Disposition: Home
[2019-05-05 14:40] VITALS: BP 114/70
== END 2019-05-05 15:09 | disposition home or self-care (01) ==
LOC: UCEAST 14:31
DX: S02.5XXA Fracture of tooth (traumatic), initial encounter for closed fracture (principal); K02.9 Dental caries, unspecified; F17.210 Nicotine dependence, cigarettes, uncomplicated; X58.XXXA Exposure to other specified factors, initial encounter; Y92.9 Unspecified place or not applicable
CPT/HCPCS: 99212; G0463

== ENCOUNTER 2019-08-27 10:50 | Emergency (ER) | payer OTHER ==
[2019-08-27] MEDS ORDERED: Ketorolac TAB * 10 MG TAB PO ONE (11:08)
--- NOTE | 2019-08-27 11:15 | ED ---
GI/ HPI - HPI Summary HPI Summary: 34 year old F arriving via ambulance complains of heavy vaginal bleeding and spotting since receiving Depo injection at [facility] in Jun 2019. She has since been having heavy vaginal bleeding during menstrual cycles and spotting in between cycles. Patient has been getting her menstrual cycles every other week. Most recent cycle started yesterday. She reports fatigue, abdominal cramping, abdominal pain radiating into her back rated 9/10 in severity. No fever. Symptoms aggravated by nothing. Symptoms alleviated by NSAIDs. Medications reviewed. - History of Current Complaint Chief Complaint: EDVaginalBleeding Time Seen by Provider: 08/27/19 11:08 Stated Complaint: ABD PAIN Hx Obtained From: Patient Hx Last Menstrual Period: 08/26/2019 Onset/Duration: Started Weeks Ago - Jun 2019, Still Present Timing: Constant, Intermittent Current Severity: Severe Pain Intensity: 9 Pain Characteristics: Cramping Pain Radiates to: Back Associated Signs and Symptoms: Positive: Negative - fever, Other: - fatigue, abdominal cramping, abdominal pain radiating into her back Aggravating Factor(s): Nothing Alleviating Factor(s): Medication - NSAIDs - Additional Pertinent History Primary Care Physician: DION - Allergy/Home Medications Allergies/Adverse Reactions: Allergies Allergy/AdvReac Type Severity Reaction Status Date / Time No Known Allergies Allergy Verified 05/05/19 14:40 Home Medications: Home Medications Divalproex ER TAB(*) [Depakote ER TAB(*)] 1,000 mg PO BEDTIME #28 tab.er [Rx Confirmed 08/27/19] QUEtiapine TAB* [Seroquel 100 MG *] 100 mg PO BEDTIME #14 tab 05/06/18 [Rx Confirmed 08/27/19] Ibuprofen TAB* [Motrin TAB* 600 MG] 600 mg PO Q8H PRN #20 tab 03/25/19 [Rx Confirmed 08/27/19] tiZANidine TAB* [Zanaflex TAB*] 2 mg PO BID 03/25/19 [History Confirmed 08/27/19 ] Ketorolac TAB * [Toradol TAB *] 10 mg PO Q6H PRN 7 Days #12 tab 08/27/19 [Rx] PMH/Surg Hx/FS Hx/Imm Hx Endocrine/Hematology History: Denies: Hx Blood Transfusions, Hx Bone Marrow Disease, Hx Diabetes, Hx Thyroid Disease Cardiovascular History: Denies: Hx Auto Implanted Cardiovert Defib, Hx Cardiomegaly, Hx Congestive Heart Failure, Hx Deep Vein Thrombosis, Hx Hypertension Respiratory History: Denies: Hx Asthma, Hx Chronic Obstructive Pulmonary Disease (COPD), Hx Lung Cancer GI History: Reports: Other GI Disorders - hemorrhoids Denies: Hx Gastroesophageal Reflux Disease, Hx Gastrointestinal Bleed, Hx Ulcer History: Reports: Other Problems/Disorders - Ovarian cyst Denies: Hx Acute Renal Failure Musculoskeletal History: Reports: Hx Back Problems - back injury, Hx Scoliosis Sensory History: Denies: Hx Contacts or Glasses, Hx Hearing Aid Opthamlomology History: Denies: Hx Contacts or Glasses Psychiatric History: Reports: Other Psychiatric Issues/Disorders - Schizoaffective disorder - Surgical History Surgery Procedure, Year, and Place: None Hx Anesthesia Reactions: No Infectious Disease History: No Infectious Disease History: Denies: Hx Hepatitis, Hx Human Immunodeficiency Virus (HIV), Traveled Outside the [place] in Last 30 Days - Family History Known Family History: Positive: Hypertension, Diabetes, Other - Ovarian cancer - Social History Alcohol Use: None Hx Substance Use: Yes Substance Use Type: Reports: Marijuana Substance Use Comment - Amount & Last Used: 2 x weekly Hx Tobacco Use: Yes Smoking Status (MU): Light Every Day Tobacco Smoker Type: Cigarettes Amount Used/How Often: 1 pack every 2 weeks Review of Systems Positive: Fatigue. Negative: Fever Positive: Abdominal Pain - radiating to back, Other - abdominal cramping Genitourinary: Other - vaginal bleeding, vaginal spotting All Other Systems Reviewed And Are Negative: Yes Physical Exam - Summary Physical Exam Summary: Constitutional: Well-developed, Well-nourished, Alert. (-) Distressed Skin: Warm, Dry HENT: Normocephalic; Atraumatic Eyes: Conjunctiva normal Neck: Musculoskeletal ROM normal neck. (-) JVD, (-) Stridor, (-) Nuchal rigidity Cardio: Rhythm regular, rate normal, Heart sounds normal; Intact distal pulses; Radial pulses are 2+ and symmetric. (-) Murmur Pulmonary/Chest wall: Effort normal. (-) Respiratory distress, (-) Wheezes, (-) Rales Abd: Soft, (-) tenderness, (-) Distension, (-) Guarding, (-) Rebound : External Exam: normal labia, no masses, lacerations or abnormal lesions visualized Speculum Exam: Cervical os open, no signs of inflammation, scant blood in the vault. Bimanual Exam: no CMT, no adnexal tenderness bilaterally Musculoskeletal: (-) Edema Neuro: Alert, Oriented x3 Psych: Mood and affect Normal Triage Information Reviewed: Yes Vital Signs On Initial Exam: Initial Vitals Temp Pulse Resp BP Pulse Ox 98.6 F 69 16 111/75 98 08/27/19 10:55 08/27/19 10:55 08/27/19 10:55 08/27/19 10:55 08/27/19 10:55 Vital Signs Reviewed: Yes Procedures - Sedation Patient Received Moderate/Deep Sedation with Procedure: No Diagnostics - Vital Signs Vital Signs Temp Pulse Resp BP Pulse Ox 08/27/19 10:55 98.6 F 69 16 111/75 98 - Laboratory Result Diagrams: 08/27/19 11:16 08/27/19 11:16 Lab Statement: Any lab studies that have been ordered have been reviewed, and results considered in the medical decision making process. GIGU Course/Dx - Course Course Of Treatment: 34 y/o F p/w dysmenorrhea and heavy vaginal bleeding in the setting of recent depo shot. - VSS, Hb stable. 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 Suspect dysmenorrhea secondary to depo shot. negative. - can f/u w OB. - Diagnoses Provider Diagnoses: Vaginal bleeding Discharge ED - Sign-Out/Discharge Documenting (check all that apply): Patient Departure - Discharge Plan Condition: Stable Disposition: HOME Prescriptions: Ketorolac TAB * [Toradol TAB *] 10 mg PO Q6H PRN 7 Days #12 tab PRN Reason: Pain - Moderate Patient Education Materials: Dysmenorrhea (ED) Forms: *Work Release Referrals: Madiha Farley MD [Medical Doctor] - Additional Instructions: You were seen in the emergency department for bleeding. This is likely secondary to your depo shot. Please follow up with [facility] Please follow up with your primary care doctor in next 2-3 days and return to emergency department for worsening bleeding, pain or concerning symptoms. It was a pleasure taking care of you today. - Billing Disposition and Condition Condition: STABLE Disposition: Home - Attestation Statements Document Initiated by Scribe: Yes Documenting Scribe: Lucretia Carrillo Provider For Whom Scribe is Documenting (Include Credential): Brooklyn Rollins MD Scribe Attestation: ILucretia, scribed for Brooklyn Rollins MD on 08/27/19 at 1308. Scribe Documentation Reviewed: Yes Provider Attestation: The documentation as recorded by the scribeLucretia accurately reflects the service I personally performed and the decisions made by Brooklyn diamond MD Status of Scribe Document: Viewed
[2019-08-27 11:42] LABS: ABS Basophils 0.1 10^3/ul (0-0.2); ABS Eosinophils 0.1 10^3/ul (0-0.6); ABS Lymphocytes 1.9 10^3/ul (1.0-4.8); ABS Monocytes 0.5 10^3/ul (0-0.8); ABS Neutrophils 3.3 10^3/ul (1.5-7.7); Eosinophil % 1.3 %; Hematocrit 37 % (35-47); Hemoglobin 12.1 g/dL (12.0-16.0); Mean Corpuscular HGB Conc 33 g/dL (31-36); Mean Corpuscular Hemoglobin 30 pg (27-31); Mean Corpuscular Volume 90 fL (80-97); Mean Platelet Volume 9.1 fL (7.4-10.4); Nucleated Red Blood Cells % 0.2; Platelet Count 214 10^3/uL (150-450); Red Blood Count 4.08 10^6 /uL (3.70-4.87); Red Cell Distribution Width 13 % (10-15); White Blood Count 5.9 10^3/uL (3.5-10.8)
[2019-08-27 12:00] LABS: ALT 11 U/L (7-52); AST 16 U/L (13-39); Albumin 4.1 g/dL (3.2-5.2); Albumin/Globulin Ratio 1.5 (1-3); Alkaline Phosphatase 47 U/L (34-104); Anion Gap 7 mmol/L (2-11); BUN/Creatinine Ratio 13.8 (8-20); Blood Urea Nitrogen 11 mg/dL (6-24); CO2 Carbon Dioxide 24 mmol/L (22-32); Calcium 9.2 mg/dL (8.6-10.3); Chloride 107 mmol/L (101-111); EGFR African American 100.6 (>60); EGFR Non-African American 83.1 (>60); Globulin 2.8 g/dL (2-4); Glucose 79 mg/dL (70-100); Potassium 4.1 mmol/L (3.5-5.0); Sodium 138 mmol/L (135-145); Total Protein 6.9 g/dL (6.4-8.9)
[2019-08-27 12:05] LABS: HCG Pregnancy < 0.60 mIU/mL
[2019-08-27 12:21] VITALS: BP 126/70
[2019-08-28 13:29] LABS: Trichomonas vag NAA Female Negative (Negative)
[2019-08-28 13:44] LABS: Chlamydia trachomatis NAA Positive (Negative); Neisseria gonorrhoeae (GC) NAA Negative (Negative)
--- NOTE | 2019-08-28 14:21 | ED ---
Imaging and Labs Follow Up Follow Up Type: Labs/Cultures Labs/Culture Result: Positive chlamydia and gardnerella. Patient Communication/Plan: I called and spoke with pt. today at 1425 and discussed results. Rx for azithromycin and flagyl sent to pharmacy. Advised all sexual partners need to be tested and treated. Pt. understands and agrees with plan. Provider Diagnoses: Vaginal bleeding
== END 2019-08-27 12:20 | disposition home or self-care (01) ==
LOC: ED 10:50
DX: N93.9 Abnormal uterine and vaginal bleeding, unspecified (principal); R53.83 Other fatigue; N94.6 Dysmenorrhea, unspecified; Z32.02 Encounter for pregnancy test, result negative; F17.210 Nicotine dependence, cigarettes, uncomplicated
CPT/HCPCS: 36415; 80053; 84702; 85025; 87480; 87491; 87510; 87591; 87661; 99283